=== PATIENT | female | born 1990 ===

== ENCOUNTER 2020-10-31 10:41 | Outpatient (REF) | payer OTHER, SELFPAY ==
[2020-10-31 14:07] LABS: Alanine Aminotransferase 17 U/L (0-31); Anion Gap 12 (12-20); Aspartate Amino Transferase 15 U/L (5-31); Blood Urea Nitrogen 11 mg/dL (9-16); Calcium 8.5 mg/dL (8.4-10.2); Carbon Dioxide 25 mmol/L (22-29); Chloride 107 mmol/L (96-108); Cholesterol 114 mg/dL; Estimated Glomerular Filt Rate > 60; Glucose Fasting 80 mg/dL (60-99); HDL Cholesterol 33 mg/dL; LDL Cholesterol Calculated 49 mg/dl; Potassium 4.1 mmol/L (3.3-5.1); Sodium 140 mmol/L (135-145); Triglycerides 163 mg/dL
[2020-11-03 16:46] LABS: TS Negative Control Passed; TS Panel A 2; TS Panel B 2; TS Positive Control Passed; TSpotTB Negative (SeeBelow)
== END 2020-10-31 10:42 | disposition home or self-care (01) ==
LOC: HO.HMGCLDS 10:41
PROVIDERS: PCP Internal Medicine; Visit Provider Internal Medicine
DX: Z00.00 Encounter for general adult medical examination without abnormal findings (principal); E66.9 Obesity, unspecified; I10 Essential (primary) hypertension
CPT/HCPCS: 36415; 80048; 80061; 84450; 84460; 86481

== ENCOUNTER 2023-02-12 11:09 | Outpatient (AMB) | payer OTHER, SELFPAY ==
--- NOTE | 2023-02-12 11:11 | AM.OFFWIN_ITS ---
Intake Vital Signs 02/12/23 11:13 Height 5 ft 5 in Weight 159 lb BMI 26.5 BP 120/80 Blood Pressure Location Lt brachial Position Sitting Pulse 78 Pulse Source Pulse Oximeter Temp 96.8 F Temp Source Temporal Artery Scan Pulse Oximetry (%) 98 Oxygen Delivery Method Room Air Intake Visit Reasons: EP, Left hip/leg pain Intake Note: Patient here for left hip and leg pain, she states it feels like it falls asleep, pain goes into groin area and feels like its getting stuck, feeling goes down to the knee. no known injuries. Patient Tobacco Use Status: Never used Tobacco Allergies No Known Allergies Allergy (Verified 02/12/23 11:16) Do you need a note to return to daycare/school/sports/work: No HPI EP, Left hip/leg pain HPI Details 32-year-old female patient presents today with anterior left yell hip tightness. She woke up 3 days ago and felt muscle soreness and tightness in that area. She thinks that this was due to sleeping in an awkward position. She denies any leg weakness or numbness. She reports the pain originates in if anterior aspect of her left groin/hip, and radiates slightly down left anterior thigh. Denies any injury or trauma. This is worse with certain movements of her left leg. [facility] Medical History Abscess of right breast MATTY III (cervical intraepithelial neoplasia grade III) with severe dysplasia Obesity (BMI 30-39.9) Vaccination hesitancy by patient Surgical History History of section S/P LEEP of cervix Family History Maternal Grandmother Osteoarthritis Social History Alcohol intake: current Alcohol intake frequency: a few times a month Patient Tobacco Use Status: Never used Tobacco Cigarettes Per Day: 5 Review of Systems Const All systems reviewed & are unremarkable except as noted in HPI and below Physical Exam Vital Signs: Last Vital Signs Temp 96.8 F 02/12/23 11:13 Pulse 78 02/12/23 11:13 BP 120/80 02/12/23 11:13 Pulse Ox 98 02/12/23 11:13 Oxygen Delivery Method Room Air 02/12/23 11:13 BMI result Body Mass Index 26.5 Const General: cooperative, healthy appearing and no acute distress Resp Effort & Inspection: normal respiratory effort and able to speak in complete sen tences GI Palpation (GI): Soft to palpation and No hepatosplenomegaly present Back/Spine/Pelvis Thoracic/Lumbar Spine: thoracic and lumbar spine normal to inspection, thoraco- lumbar ROM normal and straight leg raise negative bilaterally Pelvis: no pain with anterior-posterior compression Skin General skin exam: no rashes or lesions noted Neuro General: deep tendon reflexes 2+ bilaterally Extrem General: Yes capillary refill normal and Yes no clubbing, cyanosis or edema Left lower extremity: hip/thigh (normal hip ROM, ttp anterior thigh at distal insersion of psoas muscle.) Details: normal to inspection Psych Appearance: grossly normal Mental Status: mental status grossly normal Speech and movement: Normal speech and movement present Assessment & Plan Assessment & Plan (1) Left hip flexor tightness: Code(s): M24.552 - Contracture, left hip Plan: Patient's presentation consistent with left hip flexor/psoas strain. Hip ROM wnl. No abdominal tendernss. We reviewed gentle stretching, ice/heat application, NSAID use. I will prescribe her a short course of both meloxicam and cyclobenzaprine. We reviewed indications, use, possible side effects of these medications. If she does not improve with time and conservative measures, she should contact PCP Dr. Ely as she may benefit from course of physical therapy. Patient verbalizes understanding and agrees to plan. Medications: New meloxicam 15 mg PO DAILY 7 days 7 tabs 0RF M24.552 - Contracture, left hip cyclobenzaprine 10 mg PO BEDTIME 7 days PRN 7 tabs 0RF muscle spasm M24.552 - Contracture, left hip Coding Level of Care Code Est Pt Level 3 (79522) Diagnoses Left hip flexor tightness M24.552
[2023-02-12 11:13] VITALS: BP 120/80; PULSE 78; TEMP 36; O2SAT 98; BMI 26.5
== END 2023-02-12 11:44 | disposition home or self-care (01) ==
PROVIDERS: PCP Internal Medicine; Visit Provider Nurse Practitioner Family
DX: M24.552 Contracture, left hip (principal)
CPT/HCPCS: 99213

== ENCOUNTER 2024-01-09 13:47 | Outpatient (AMB) | payer OTHER, SELFPAY ==
[2024-01-09 13:51] VITALS: BP 120/80; PULSE 72; O2SAT 98; BMI 27.3
--- NOTE | 2024-01-09 13:51 | MHC.PC.OV ---
Vital Signs 01/09/24 13:51 Height 5 ft 5 in Weight 164 lb BMI 27.3 BP 120/80 Blood Pressure Location Rt brachial Position Sitting Pulse 72 Pulse Source Pulse Oximeter Pulse Oximetry (%) 98 Oxygen Delivery Method Room Air Intake Visit Reasons: PE+NEEDS PHQ9/THRIVE Intake Note: pt is here for her annual exam last pap:11/15/20 - due left finger also has been bothering her Roving Or Yarn Color Checker Required: No Accompanied by: Daughter Allergies No Known Allergies Allergy (Verified 01/09/24 14:17) Medication List - Last Reconciled 01/09/24 by Jo Ely MD No Known Home Meds Tobacco use date assessed: 01/09/24 Dental Screening Dental Screen Date: 01/09/24 Did you have a dental visit in the last 12 months?: Yes Did you have a dental problem in the last 6 months where you did not have access to dental care?: No Was dental information given to patient?: Patient has dentist HPI PE+NEEDS PHQ9/THRIVE HPI Details 33-year-old lady here today for physical exam. She is due for her cervical cancer screening, last done in [facility] in 2020 with history of abnormal Pap in the past status post LEEP. She has been feeling well with no complaints at present time. [facility] Medical History (Updated 01/09/24 @ 14:30 by Jo Ely MD) Vaccination hesitancy by patient Obesity (BMI 30-39.9) Abscess of right breast MATTY III (cervical intraepithelial neoplasia grade III) with severe dysplasia Surgical History History of section S/P LEEP of cervix Family History Maternal Grandmother Osteoarthritis Social History Housing: Apartment Alcohol intake: current Alcohol intake frequency: a few times a month Patient Tobacco Use Status: Never used Tobacco Cigarettes Per Day: 5 e-Cigarette/Vaping Use: Never Used service: No Current occupational status: employed Current occupational exposures/hazards: No Cognitive needs: No Hearing needs: No Vision needs: No Questionnaire PHQ-9 Over the last 2 weeks, how often have you been bothered by any of the following problems? 1. Little interest or pleasure in doing things: not at all 2. Feeling down, depressed, or hopeless: not at all 3. Trouble falling or staying asleep, or sleeping too much: not at all 4. Feeling tired or having little energy: not at all 5. Poor appetite or overeating: not at all 6. Feeling bad about yourself - or that you are a failure or have let yourself or your family down: not at all 7. Trouble concentrating on things, such as reading the newspaper or watching television: not at all 8. Moving or speaking so slowly that other people could have noticed. Or the opposite - being so fidgety or restless that you have been moving around a lot more than usual: not at all 9. Thoughts that you would be better off or of hurting yourself in some way: not at all Total score: 0 Depression Screening Interpretation: Negative Depression Screening Done: Yes 99733 - PHQ-9 Billing: Yes Source: Developed by Drs. Herb Toney, Carine Gibson, Kemal Smith and colleagues, with an educational ernst from [employer]. Thrive Questionnaire Date Thrive assessed: 01/09/24 I am a: Patient What is your living situation today?: I have a steady place to live Within the past 12 months, did the food you bought not last and you didn't have the money to get more?: Never true Within the past 12 months, did you worry whether your food would run out before you got money to buy more?: Never true Do you have trouble paying for medicines?: No Do you have trouble getting transportation to medical appointments?: No Do you have trouble paying your heating and electricity bill?: No Do you have trouble taking care of your child, family member or friend?: No Do you have trouble with day-to-day activities such as bathing, preparing meals, shopping, managing finances, etc.?: No Are you currently unemployed and looking for a job?: No Are you interested in more education?: No Please select the resources that you would like help with: Housing/[facility] Currently or been in a relationship where the following occur: No concerns reported THRIVE Score: 0 AUDIT C Alcohol Use Questionnaire (AUDIT-C) 1. How often do you have a drink containing alcohol?: 2-4 times a month 2. How many drinks containing alcohol do you have on a typical day when you are drinking?: 1 or 2 3. How often do you have six or more drinks on one occasion?: Monthly Total Score: 4 Score Reviewed/Action Taken: Yes CHARLEEN-7 AMB Questionnaire CHARLEEN-7 Date CHARLEEN - 7 assessed: 01/09/24 Feeling nervous, anxious, or on edge: 0 = Not at all Not being able to stop or control worryin = Not at all Worrying too much about different things: 0 = Not at all Trouble relaxin = Not at all Being so restless that it is hard to sit still: 0 = Not at all Becoming easily annoyed or irritable: 0 = Not at all Feeling afraid as if something awful might happen: 0 = Not at all Total CHARLEEN-7 score (0-4 normal; 5-9 mild; 10-14 moderate; 15-21 severe): 0 Source: Developed by Drs. Herb Toney, Carine Gibson, Kemal Smith and colleagues, with an educational ernst from [employer]. CHARLEEN-7 Assessment Billing CHARLEEN-7 Assessment Tool: CHARLEEN-7 Assessment 29380 Review of Systems Const Denies body aches, Denies fatigue, Denies fever(s), Denies headache(s) and Denies weakness Eyes Denies change in vision ENT Denies dizziness, Denies headache(s), Denies nasal congestion, Denies nasal discharge and Denies sore throat Card Denies chest pain, Denies lightheadedness, Denies palpitations and Denies dyspnea Resp Denies chest congestion, Denies cough, Denies dyspnea and Denies wheezing GI Denies abdominal pain, Denies change in bowel habits and Denies heartburn Denies urinary frequency, Denies dysuria and Denies urinary urgency Musc Reports no additional complaints and Reports as per HPI Skin/Breast Denies lesions and Denies rash Neuro Denies dizziness, Denies headache(s) and Denies weakness Psych Reports no additional complaints Endo Denies fatigue, Denies polydipsia, Denies polyuria and Denies palpitations Last/Lymph Reports no additional complaints Aller/Immun Denies seasonal rhinorrhea and Denies wheezing Physical exam (Primary Care) Vital Signs: Last Vital Signs Pulse 72 07/25/24 13:51 BP 120/80 01/09/24 13:51 Pulse Ox 98 01/09/24 13:51 Oxygen Delivery Method Room Air 01/09/24 13:51 BMI result Body Mass Index 27.3 Tobacco/Smoking Status: Tobacco use Status Tobacco use date assessed 01/09/24 01/09/24 13:53 Patient Tobacco Use Status Never used Tobacco 01/09/24 13:53 e-Cigarette/Vaping Use Never Used 01/09/24 13:53 PHQ-9: PHQ-9 Score PHQ-9: Total score 0 01/09/24 14:30 Depression Screening Interpretation: Negative Thrive Assessment: Date of Thrive Assessment Date Thrive assessed 01/09/24 01/09/24 13:53 Currently or been in a relationship where the following occur: No concerns reported Const General: no acute distress and alert Orientation/consciousness: patient oriented x3 HENMT Head: Yes normocephalic and Yes atraumatic Ears: external ears normal, TM's normal bilaterally and EAC's normal General nose exam: Normal external nose present and No nasal discharge present Face and sinus: Yes face symmetric Mouth: Normal oral and palatal mucosa present, lip normal, tongue normal, oropharynx normal and moist mucous membranes Eyes General: appearance normal, both eyes and all related structures Eyelids: Yes eyelids normal Conjunctivae: conjunctivae normal Sclerae: sclerae normal Pupils: Equal, round and reactive pupils present EOM: EOMs intact bilaterally Neck Neck: Yes full ROM, Yes no lymphadenopathy and Yes supple Thyroid: Thyroid normal Chest Breast/axilla palpation: normal palpation of the breasts Resp Effort & Inspection: normal respiratory effort and able to speak in complete sentences Auscultation: clear to auscultation bilaterally Cardio Rate: regular rate Rhythm: regular rhythm Heart sounds: S1 normal heart sound present and S2 normal heart sound present GI Palpation (GI): Soft to palpation, nontender, no guarding and no masses Auscultation: normal bowel sounds General: Yes no CVA tenderness Back/Spine/Pelvis Back: no CVA tenderness and No back tenderness Skin General skin exam: no rashes or lesions noted Neuro General: patient oriented x3, gait normal, moves all extremities, Normal light touch and pain sensation, no focal motor deficits and CN's II-XI intact bilaterally Cranial nerves: Yes Equal, round and reactive pupils present Cognition (Neuro): normal cognition Gait exam (Neuro): Normal gait present Motor exam (neuro): 5/5 motor strength present throughout Extrem Other: Slight tenderness on palpation over mcp joint of ring finger of left hand General: Yes normal to inspection, Yes full ROM, Yes no joint enlargement, Yes no clubbing, cyanosis or edema and Yes normal gait Psych Appearance: grossly normal and well kempt Mental Status: mental status grossly normal Speech and movement: Normal speech and movement present Affect: normal affect Attitude: cooperative Thought process: Normal thought process present Thought content: Normal thought content present Assessment and Plan Assessment & Plan (1) Annual visit for general adult medical examination with abnormal findings: Code(s): Z00.01 - Encounter for general adult medical examination with abnormal findings Plan: Will check appropriate labs. Recommended dental visit every 6 months and regular eye exams, at least every 2 years. Take adequate calcium in diet and vitamin-D 3 at 2000 IU per cap once a day, in addition to weight-bearing exercises to help maintain good muscle tone and weight control. Instructed to do self-breast exam, and recommended to get yearly mammogram, starting at age 40. Patient states that she has already has an appointment OBGYN at [facility] for her routine Pap and pelvic exam declines vaccination (2) Pain of finger of left hand: Code(s): M79.645 - Pain in left finger(s) Plan: Ordered x-ray of left ring finger, advised to apply diclofenac gel to affected area 3 times a day as needed. (3) Screening for tuberculosis: Code(s): Z11.1 - Encounter for screening for respiratory tuberculosis Plan: T spot ordered Orders: Orders XR finger LT min 2V 01/09/24 M79.645 - Pain in left finger(s) Alanine Aminotransferase 01/09/24 Z00.01 - Encounter for general adult medical examination with abnormal findings, Z11.1 - Encounter for screening for respiratory tuberculosis, Z13.1 - Encounter for screening for diabetes mellitus, Z13.220 - Encounter for screening for lipoid disorders Hemoglobin and Hematocrit 01/09/24 Z00.01 - Encounter for general adult medical examination with abnormal findings, Z11.1 - Encounter for screening for respiratory tuberculosis, Z13.1 - Encounter for screening for diabetes mellitus, Z13.220 - Encounter for screening for lipoid disorders Aspartate Amino Transferase 01/09/24 Z00.01 - Encounter for general adult medical examination with abnormal findings, Z11.1 - Encounter for screening for respiratory tuberculosis, Z13.1 - Encounter for screening for diabetes mellitus, Z13.220 - Encounter for screening for lipoid disorders Basic Metabolic Panel Fasting 01/09/24 Z00.01 - Encounter for general adult medical examination with abnormal findings, Z11.1 - Encounter for screening for respiratory tuberculosis, Z13.1 - Encounter for screening for diabetes mellitus, Z13.220 - Encounter for screening for lipoid disorders Lipid Panel 01/09/24 Z00.01 - Encounter for general adult medical examination with abnormal findings, Z11.1 - Encounter for screening for respiratory tuberculosis, Z13.1 - Encounter for screening for diabetes mellitus, Z13.220 - Encounter for screening for lipoid disorders T Spot TB 01/09/24 Z00.01 - Encounter for general adult medical examination with abnormal findings, Z11.1 - Encounter for screening for respiratory tuberculosis, Z13.1 - Encounter for screening for diabetes mellitus, Z13.220 - Encounter for screening for lipoid disorders Coding Level of Care Code Est Pt Prev Care 18-39y([id number]) Diagnoses Annual visit for general adult medical examination with abnormal findings Z00.01 Pain of finger of left hand M79.645 Screening for tuberculosis Z11.1 Additional Codes CHARLEEN-7 Assessment Billing - CHARLEEN-7 Assessment Tool: CHARLEEN-7 Assessment 67591 ([id number])
== END 2024-01-09 15:06 | disposition home or self-care (01) ==
PROVIDERS: PCP Internal Medicine; Visit Provider Internal Medicine
DX: Z00.00 Encounter for general adult medical examination without abnormal findings (principal); M79.645 Pain in left finger(s); Z11.1 Encounter for screening for respiratory tuberculosis
CPT/HCPCS: 99395

== ENCOUNTER 2024-01-09 14:29 | Outpatient (REF) | payer OTHER, SELFPAY ==
--- NOTE | ~2024-01-09 | XR_ITS ---
EXAMINATION: XR FINGER, LEFT CLINICAL INFORMATION: Pain of fingers. Injury to ring finger yesterday. COMPARISON: None available. TECHNIQUE: 3 views of the left fourth digit. FINDINGS: The bones and soft tissues are normal. No fracture. Alignment is anatomic. Joint spaces are maintained. XR/XR finger LT min 2V IMPRESSION: Normal radiographs of the fourth digit. No fracture or malalignment.
[2024-01-09 16:13] LABS: Hemoglobin 13.4 g/dl (12.0-16.0)
[2024-01-09 16:57] LABS: Alanine Aminotransferase 10 U/L (0-31); Anion Gap 13 (12-20); Aspartate Amino Transferase 13 U/L (5-31); Blood Urea Nitrogen 9 mg/dL (9-16); Calcium 9.5 mg/dL (8.4-10.2); Carbon Dioxide 24 mmol/L (22-29); Chloride 109 mmol/L (96-108); Cholesterol 132 mg/dL (<200); Estimated Glomerular Filt Rate > 60; Glucose Fasting 77 mg/dL (60-99); HDL Cholesterol 44 mg/dL (>40); LDL Cholesterol Calculated 70 mg/dL (<100); Potassium 4.2 mmol/L (3.3-5.1); Sodium 142 mmol/L (135-145); Triglycerides 92 mg/dL (<150)
== END 2024-01-09 14:30 | disposition home or self-care (01) ==
LOC: HO.HMGCX 14:29
PROVIDERS: PCP Internal Medicine; Visit Provider Internal Medicine
DX: Z00.01 Encounter for general adult medical examination with abnormal findings (principal); Z13.220 Encounter for screening for lipoid disorders; Z13.1 Encounter for screening for diabetes mellitus; Z11.1 Encounter for screening for respiratory tuberculosis; M79.645 Pain in left finger(s)
CPT/HCPCS: 36415; 73140; 80048; 80061; 84450; 84460; 85014; 85018